=== PATIENT | male | born 2000 | race Two or more races ===

== ENCOUNTER 2025-01-27 00:18 | Emergency (ER) | payer MEDICAID ==
[2025-01-27] MEDS ORDERED: Sodium Chloride 0.9% 10 ML Syringe FLUSH PRN (00:22)
[2025-01-27] MEDS: Lactated Ringers 1,000 ML IV ONE (00:39)
[2025-01-27] MEDS: fentaNYL 100 MCG/2 ML SDV IVPUSH ONE (00:40)
[2025-01-27] MEDS: Ondansetron 4 MG/2 ML SDV IVPUSH ONE ×2 (00:40→03:15)
[2025-01-27 00:49] LABS: BASOPHILS ABSOLUTE AUTO 0.0 x10^3/uL (0.0-0.2); BASOPHILS PERCENT AUTO 0.2 % (0.2-1.2); EOSINOPHILS ABSOLUTE AUTO 0.0 x10^3/uL (0.0-0.5); EOSINOPHILS PERCENT AUTO 0.0 % (0.0-4.0); IMMATURE GRAN ABSOLUTE AUTO 0.02 x10^3/uL (0.00-0.07); IMMATURE GRAN PERCENT AUTO 0.20 % (0.00-0.43); LYMPHOCYTES ABSOLUTE AUTO 2.6 x10^3/uL (1.0-4.8); LYMPHOCYTES PERCENT AUTO 26.3 % (25.0-50.0); MONOCYTES ABSOLUTE AUTO 0.5 x10^3/uL (0.0-0.8); MONOCYTES PERCENT AUTO 4.5 % (2.0-11.0); NEUTROPHILS ABSOLUTE AUTO 6.9 x10^3/uL (1.8-7.7); NEUTROPHILS PERCENT AUTO 68.8 % (50.0-80.0); PLATELET COUNT,PLT 284 x10^3/uL (130-400); RED BLOOD CELL COUNT 4.99 x10^6/uL (4.5-6.0); WHITE BLOOD CELL COUNT,WBC 10.0 x10^3/uL (4.0-10.0)
[2025-01-27 01:04] LABS: A/G RATIO 2.17; ALANINE AMINOTRANSFERASE,ALT 17 U/L (16-63); ASPARTATE AMNIOTRANSFERASE,AST 25 U/L (15-37); BILIRUBIN TOTAL 1.2 mg/dL (0.2-1.0); BLOOD UREA NITROGEN,BUN 24 mg/dL (7-18); CARBON DIOXIDE,CO2 18 mmol/L (21-32); CHLORIDE,CL 97 mmol/L (98-107); CREATININE 1.3 mg/dL (0.70-1.30); ESTIMATED GFR 78 mL/min (>=60); GLUCOSE RANDOM 94 mg/dL (70-99); POTASSIUM,K 3.6 mmol/L (3.5-5.1); PROTEIN TOTAL,TP 7.6 g/dL (6.4-8.2); SODIUM,NA 141 mmol/L (136-145)
[2025-01-27] MEDS: Ketorolac 30 MG/ML SDV IVPUSH ONE (01:05)
[2025-01-27 01:06] LABS: ETHANOL BLOOD MEDICAL < 3 mg/dL (0-3)
[2025-01-27 01:44] LABS: APPEARANCE,URINE SLIGHTLY CLOUDY (CLEAR); GLUCOSE,URINE NEGATIVE (NEGATIVE); OCCULT BLOOD,URINE NEGATIVE (NEGATIVE)
[2025-01-27] MEDS: Iopamidol 612 MG/ML 100 ML Bottle IVPUSH ONE (01:49)
[2025-01-27 01:51] LABS: SQUAMOUS EPITHELIAL CELLS,UR MODERATE /HPF (NOT SEEN)
== END 2025-01-27 03:27 | disposition home or self-care (01) ==
LOC: VM.ED 00:18
DX: K52.9 Noninfective gastroenteritis and colitis, unspecified (principal); Z79.899 Other long term (current) drug therapy
CPT/HCPCS: 36415; 74177; 80053; 80307; 81001; 82150; 83690; 85025; 96361; 96374; 96375; 96376; 99284; 99285-25; A9270-GY; J1885; J2405; J3010; J7120; Q9967